=== PATIENT | female | born 1955 | race Caucasian/White ===

== ENCOUNTER → 2024-12-23 08:19 | Outpatient (REF) | payer OTHER, SELFPAY | LOC: MRI 3T 08:19 | PROVIDERS: ATTENDING PHYSICIAN Neurological Surgery; FAMILY PHYSICIAN Nurse Practitioner Family | DX: G96.191 Perineural cyst (principal) | CPT/HCPCS: 72148 ==

== ENCOUNTER 2025-04-14 12:26 | Emergency (ER) | payer OTHER, SELFPAY ==
[2025-04-14 12:27] VITALS: BP 160/69
[2025-04-14 12:44] LABS: Hematocrit 39.3 % (37.0-47.0); Hemoglobin 13.4 g/dL (12.0-16.0); Mean Corp Hgb Conc. 34.1 g/dL (33.0-37.0); Mean Corpuscular Volume 91.4 fL (81.0-99.0); Platelet Count 155 10^3/uL (130-400); Red Cell Dist. Width 12.2 % (11.5-14.5)
[2025-04-14 13:08] LABS: ALT (SGPT) 22 U/L (0-35); AST (SGOT) 29 U/L (14-36); Albumin 4.4 g/dl (3.5-5.0); Alkaline Phosphatase 77 U/L (38-126); Blood Urea Nitrogen 15 mg/dl (7-17); Calcium 9.4 mg/dl (8.4-10.2); Carbon Dioxide 25 mmol/L (22-30); Chloride 106 mmol/L (98-107); Glucose 112 mg/dl (70-99); Potassium 4.5 mmol/L (3.5-5.1); Sodium 137 mmol/L (135-145); Total Protein 7.5 g/dl (6.3-8.2); eGFR > 60.00
[2025-04-14 13:40] VITALS: BP 150/47
[2025-04-14 14:00] VITALS: BP 85/63
--- NOTE | 2025-04-14 14:26 | ED.GENMED ---
History of Present Illness
General
Chief Complaint: Rectal Bleeding
Source: patient
Exam Limitations: none
Time Seen by Provider: 04/14/25 13:45
Nursing documentation reviewed up to this point in time: agreed with
History of Present Illness
History of Present Illness:
69 yo female w h/o HTN, IBS, GIST tumor w removal 2016, unremarkable colonoscopy 2022, here for 3-4 episodes bloody diarrhea this 8:30 a.m. Has had no abdominal pain
She noted red blood in the toilet with the diarrhea, stating, 'It was a ton of blood.' She has experienced four to five episodes of diarrhea since the onset. The patient also mentioned noticing blood in her urine, described as 'a little pink,' after
holding it for some time, and confirmed by her daughter.
Has not experienced any fever, chills, chest pain, shortness of breath, or abdominal pain. She denies recent travel or known contact with individuals who are ill, and she does not smoke or consume alcohol.
The patient noted a history of diverticula 'pockets' a year and a half ago during a colonoscopy, no diverticulitis.
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
Past History
Past History
ED Past Medical History: None and Cancer (GIST tumor)
ED Past Surgical History: (x 2), Tonsilectomy and Other (GIST tumor removal)
Social History
Tobacco: Non-smoker
Alcohol: None
Drug: None
Personal: Single
Living: alone
Employment: Not employed
Review of Systems
Review of Systems
Allergies reviewed?: Yes
All Other Systems: ROS reviewed and negative except as documented in HPI and ROS
Constitutional: Denies fever or fatigue
Respiratory: Denies trouble breathing
Cardiac: Denies chest pain
ABD/GI: Reports diarrhea and bloody stools; Denies abdominal pain, nausea, vomiting or anorexia
: Denies dysuria, frequency or difficulty voiding
Musculoskeletal: Reports no symptoms
Skin: Reports no symptoms
Neurological: Reports no symptoms
Phy Exam
Physical Exam
Physical Exam:
GENERAL: No acute distress. A&Ox3.
CONSTITUTIONAL: Afebrile.
EYES: clear, conjunctivae normal
ENMT: moist mucus membranes, Pharynx nl
RESPIRATORY: Regular respirations, nonlabored, lungs clear.
CARDIOVASCULAR: Regular rate and rhythm, no murmurs, no rubs.
GI: Soft, nontender, normal BS
: urine faint pink color
Rectal;No stool in rectal vault, mucus heme neg
MUSCULOSKELETAL: Moves with ease. Well perfused.
SKIN: Warm, dry, pink
PSYCH: Normal mood and affect. Well kept, interactive and appropriate
NEUROLOGIC: Awake, alert and oriented. No focal neurological deficits
Course
Orders/Labs/Results
Orders:
Orders
04/14/25 12:38
CMP [Comprehensive Metabolic Panel] Urgent
Complete Blood Count/No Diff Urgent
04/14/25 14:32
Urinalysis Reflex To Culture Urgent
Date Specimen was Collected: 04/14/25
Time Specimen was Collected: 14:00
Abnormal Lab Results
04/14/25
12:38
MCH 31.2 H pg
(27.0-31.0)
MPV 10.9 H fL
(7.4-10.4)
Glucose 112 H mg/dl
(70-99)
04/14/25 12:38
04/14/25 12:38
Vital Signs
Initial and Last Documented VS:
Initial Vital Signs
Temp Pulse Resp BP Pulse Ox
98.4 F 85 16 160/69 98
04/14/25 12:27 04/14/25 12:27 04/14/25 12:27 04/14/25 12:04/14/25 12:27
Last Documented Vital Signs
Temp Pulse Resp BP Pulse Ox
98.4 F 85 16 106/88 100
04/14/25 12:27 04/14/25 12:27 04/14/25 12:27 04/14/25 14:31 04/14/25 14:45
MDM/Problems Addressed
Differential Diagnosis Includes:
1. Diverticular bleeding
2. Hemorrhoids
3. Colitis (infectious or inflammatory)
4. Gastroenteritis
5. Hemorrhagic cystitis
6. Colorectal cancer
7. Peptic ulcer disease
8. Gastrointestinal stromal tumor recurrence
9. Urinary tract infection
10. Anal fissure
MDM/Problems Addressed:
69 yo female w h/o HTN, IBS, GIST tumor w removal 2016, unremarkable colonoscopy 2022, here for 3-4 episodes bloody diarrhea this 8:30 a.m. Has had no abdominal pain
She noted red blood in the toilet with the diarrhea, stating, 'It was a ton of blood.' She has experienced four to five episodes of diarrhea since the onset. The patient also mentioned noticing blood in her urine, described as 'a little pink,' after
holding it for some time, and confirmed by her daughter.
Has not experienced any fever, chills, chest pain, shortness of breath, or abdominal pain. She denies recent travel or known contact with individuals who are ill, and she does not smoke or consume alcohol.
The patient noted a history of diverticula 'pockets' a year and a half ago during a colonoscopy, no diverticulitis.
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
CBC, CMP normal
Urine is slightly pink-tinged, UA negative. Patient eats meats on a regular basis which may explain the color of the urine.
Patient referred to GI
Return instructions reviewed with patient and daughter
Sent contact info to GI for a sooner appointment due to her hx stomach CA
*Pulse Oximetry
SaO2: 100
Oxygen Mode of Delivery: Room air
Patient hypoxic: not evaluated
*Critical Care Note
Total Time (30-74mins, 75-104mins- exclusive of procedures): Not Applicable
ED Attending Note
-
Portions of this chart may have been created with voice recognition software.� Occasional wrong word or��sound alike� substitutions may have occurred due to the inherent limitations of voice recognition software.
Discharge Plan
Departure
Patient Disposition: Home (Routine Discharge)
Date of Disposition: 04/14/25
Time of Disposition: 15:00
Patient with high blood pressure during this ER visit?: No
Condition: Good
Discharge Problem:
Rectal bleeding, Diarrhea
Instructions: Diarrhea in teens and adults, Bloody Stools, Adult ED
Prescriptions:
No Action
vitamin B complex 1 TAB tablet
1 tab PO Daily
cholecalciferol (vitamin D3) 2,000 UNIT tablet
2,000 unit PO Daily
acetaminophen 500 mg Tablet
1,000 mg PO DAILYPRN PRN (Reason: mild pain)
alprazolam 0.5 mg tablet
0.5 mg PO HSPRN PRN (Reason: anxiety)
Referrals:
Buddy Hill, DO [Active, Gastroenterology] - Next open appointment
Activity Restrictions/Additional Instructions:
As we discussed, nothing worrisome in your workup here today.
Call make an appointment to see the GI doctor.
Return here immediately for fever, chills, vomiting, increasing bloody diarrhea or feeling worse in any way
Interventions
Interventions:
*Risk Screen - Suicide Last Done: 04/14/25 12:36
*General Assessment Last Done: 04/14/25 13:44
*Neglect/Abuse Screening Last Done: 04/14/25 12:36
*ED- Fall Risk Assessment Last Done: 04/14/25 13:44
*ED COVID-19 Vaccine History Last Done: 04/14/25 12:27
*Nursing Disposition Last Done: 04/14/25 15:19
LV-Gqrddf-Uzoidykihj Assessment Last Done: 04/14/25 13:44
ED- Cardiac Assessment Last Done: 04/14/25 13:44
ED- Pulmonary Assessment Last Done: 04/14/25 13:44
Discharge Date and Time
Discharge Date/Time: 04/14/25 15:20
Print Language: [place]
[2025-04-14 14:31] VITALS: BP 106/88
[2025-04-14 14:42] LABS: Urine Character Clear (Clear)
== END 2025-04-14 15:20 | disposition home or self-care (01) ==
LOC: EMR 12:26
PROVIDERS: Registered Nurse; EMERGENCY PHYSICIAN Emergency Medicine; FAMILY PHYSICIAN Nurse Practitioner Family
DX: K62.5 Hemorrhage of anus and rectum (principal); R19.7 Diarrhea, unspecified; K57.90 Diverticulosis of intestine, part unspecified, without perforation or abscess without bleeding; I10 Essential (primary) hypertension; K58.9 Irritable bowel syndrome, unspecified; G62.9 Polyneuropathy, unspecified; F41.9 Anxiety disorder, unspecified; Z85.028 Personal history of other malignant neoplasm of stomach; Z87.01 Personal history of pneumonia (recurrent); Z88.2 Allergy status to sulfonamides
CPT/HCPCS: 99283; 80053; 81003; 85027

== ENCOUNTER 2025-05-03 06:18 | Day surgery (SDC) | payer OTHER, SELFPAY | END 2025-05-03 14:11 | disposition home or self-care (01) | LOC: GI 06:18 | PROVIDERS: ATTENDING PHYSICIAN Internal Medicine Gastroenterology | DX: R63.4 Abnormal weight loss (principal); K62.5 Hemorrhage of anus and rectum; K64.8 Other hemorrhoids; K57.30 Diverticulosis of large intestine without perforation or abscess without bleeding; K44.9 Diaphragmatic hernia without obstruction or gangrene; K31.7 Polyp of stomach and duodenum; K31.89 Other diseases of stomach and duodenum; D12.2 Benign neoplasm of ascending colon; K29.50 Unspecified chronic gastritis without bleeding; K63.89 Other specified diseases of intestine | CPT/HCPCS: 45380; 43239; 88305; 88342 ==

== ENCOUNTER 2025-07-08 17:14 | Outpatient (RCR) | payer OTHER, SELFPAY | END 2025-07-15 23:59 | disposition home or self-care (01) | LOC: RPT 17:14 | PROVIDERS: ATTENDING PHYSICIAN Orthopaedic Surgery; FAMILY PHYSICIAN Student in an Organized Health Care Education/Training Program | DX: M47.816 Spondylosis without myelopathy or radiculopathy, lumbar region (principal); M17.12 Unilateral primary osteoarthritis, left knee; G62.9 Polyneuropathy, unspecified; Z73.6 Limitation of activities due to disability; M62.81 Muscle weakness (generalized); Z96.651 Presence of right artificial knee joint; V19.3XXD Pedal cyclist (driver) (passenger) injured in unspecified nontraffic accident, subsequent encounter | CPT/HCPCS: 97110; 97140; 97163; 97530 ==

== ENCOUNTER 2025-07-29 18:57 | Outpatient (RCR) | payer OTHER, SELFPAY | END 2025-07-29 23:59 | disposition home or self-care (01) | LOC: RPT 18:57 | PROVIDERS: ATTENDING PHYSICIAN Orthopaedic Surgery; FAMILY PHYSICIAN Student in an Organized Health Care Education/Training Program | DX: M47.816 Spondylosis without myelopathy or radiculopathy, lumbar region (principal); M17.12 Unilateral primary osteoarthritis, left knee; G62.9 Polyneuropathy, unspecified; Z73.6 Limitation of activities due to disability; M62.81 Muscle weakness (generalized); Z96.651 Presence of right artificial knee joint; V19.3XXD Pedal cyclist (driver) (passenger) injured in unspecified nontraffic accident, subsequent encounter | CPT/HCPCS: 97110; 97530 ==

== ENCOUNTER 2025-08-26 18:53 | Outpatient (RCR) | payer OTHER, SELFPAY | END 2025-08-26 23:59 | disposition home or self-care (01) | LOC: RPT 18:53 | PROVIDERS: ATTENDING PHYSICIAN Orthopaedic Surgery; FAMILY PHYSICIAN Student in an Organized Health Care Education/Training Program | DX: M47.816 Spondylosis without myelopathy or radiculopathy, lumbar region (principal); M17.12 Unilateral primary osteoarthritis, left knee; G62.9 Polyneuropathy, unspecified; Z73.6 Limitation of activities due to disability; M62.81 Muscle weakness (generalized); Z96.651 Presence of right artificial knee joint; V19.3XXD Pedal cyclist (driver) (passenger) injured in unspecified nontraffic accident, subsequent encounter | CPT/HCPCS: 97110 ==

== ENCOUNTER → 2025-09-13 08:56 | Outpatient (REF) | payer OTHER, SELFPAY | LOC: HWRAD 08:56 | PROVIDERS: ATTENDING PHYSICIAN Student in an Organized Health Care Education/Training Program; FAMILY PHYSICIAN Student in an Organized Health Care Education/Training Program | DX: Z78.0 Asymptomatic menopausal state (principal); Z12.31 Encounter for screening mammogram for malignant neoplasm of breast | CPT/HCPCS: 77063; 77067; 77080 ==